=== PATIENT | male | born 1995 | race African-American/Black ===

== ENCOUNTER 2024-11-20 16:54 | Emergency (ER) | payer OTHER ==
[~2024-11-20] VITALS: Ht 162.6 cm; Wt 102.1 kg
[2024-11-20] MEDS ORDERED: KETOROLAC TROMETHAMINE 30 MG INJ ONE (17:17)
[2024-11-20 17:18] LABS: BASOPHILS # (AUTO) 0.1 K/UL (0.0-0.2); BASOPHILS % (AUTO) 0.4 % (0.0-2.0); EOSINOPHILS % (AUTO) 0.1 % (0.0-7.0); HEMATOCRIT 44.7 % (36.7-47.1); HEMOGLOBIN 14.7 g/dL (12.5-16.3); LYMPHOCYTES # (AUTO) 1.8 K/uL (0.8-4.8); LYMPHOCYTES % (AUTO) 10.4 % (20.5-51.5); MEAN CORPUSCULAR HEMOGLOBIN 28.9 uug (23.8-33.4); MEAN CORPUSCULAR HGB CONC 33 g/dL (32.5-36.3); MEAN CORPUSCULAR VOLUME 88.3 fL (73.0-96.2); MONOCYTES # (AUTO) 1.1 K/uL (0.1-1.30); MONOCYTES % (AUTO) 6.2 % (0.0-11.0); NEUTROPHILS # (AUTO) 14.2 K/uL (1.8-8.9); NEUTROPHILS % (AUTO) 82.9 % (38.5-71.5); PLATELET COUNT (AUTO) 265 K/uL (152-348); RED BLOOD CELL COUNT(AUTO) 5.07 MIL/uL (4.06-5.63); RED CELL DISTRIBUTION WIDTH 13.5 % (12.1-16.2); WHITE BLOOD COUNT (AUTO) 17.1 K/uL (3.6-10.2)
[2024-11-20 17:21] LABS: DIFFERENTIAL COMMENT 1
[2024-11-20] MEDS: KETOROLAC TROMETHAMINE 30 MG INJ IVP ONE (17:24)
[2024-11-20 17:26] LABS: CALCIUM 9.2 mg/dL (8.5-10.1); CREATININE 1.8 mg/dL (0.6-1.3); POTASSIUM 3.4 mmol/L (3.5-5.1)
[2024-11-20] MEDS: IV NORMAL SALINE 1000 ML BAG IV ONE (17:39)
[2024-11-20 18:33] VITALS: BP 130/89; O2SAT 100
== END 2024-11-20 18:34 | disposition home or self-care (01) ==
LOC: ER 16:55
DX: M62.830 Muscle spasm of back (principal); E86.0 Dehydration; Q87.81 Alport syndrome
CPT/HCPCS: 99283; 96374; 96361; 80048; 82550; 85025; 36415; J1885; J7040; A4606; A4663